=== PATIENT | male | born 1960 | race Caucasian/White ===

== ENCOUNTER → 2016-07-13 | Outpatient (CLI) | payer OTHER ==
[~2016-07-13] VITALS: Ht 170.2 cm; Wt 79.4 kg
[~2016-07-13] MED LIST: FLOM5CAP PO; LIDOCAINE 2% INJ 100 MG/5 ML SDV (FOR ANES.) As Ordered ONE; NAPR250T2 PO; PERCOCET PO; POTA595T8 PO; PROPOFOL 200 MG/20 ML VIAL As Ordered ONE; RANI15TA PO; TYLENOL #3 OR
--- NOTE | 2016-07-13 09:14 | ROOR ---
Patient Name: Antony Villafana Procedure Date: 07/13/2016 8:51 AM Date of : 1960 Age: 55 Room: [facility] [place] Gender: Male Note Status: Finalized Procedure: Colonoscopy Indications: Screening for colorectal malignant neoplasm Providers: Romeo Pope DO Referring MD: Roddy Marcus Do Requesting Provider: Medicines: Propofol per Anesthesia Complications: No immediate complications. Procedure: Pre-Anesthesia Assessment: - Prior to the procedure, a History and Physical was performed, and patient medications and allergies were reviewed. The patient is competent. The risks and benefits of the procedure and the sedation options and risks were discussed with the patient. All questions were answered and informed consent was obtained. Patient identification and proposed procedure were verified by the physician, the nurse, the anesthesiologist and the cryptological technician in the endoscopy suite. Mental Status Examination: alert and oriented. Airway Examination: normal oropharyngeal airway and neck mobility. Respiratory Examination: clear to auscultation. CV Examination: normal. Prophylactic Antibiotics: The patient does not require prophylactic antibiotics. Prior Anticoagulants: The patient has taken no previous anticoagulant or antiplatelet agents. ASA Grade Assessment: II - A patient with mild systemic disease. After reviewing the risks and benefits, the patient was deemed in satisfactory condition to undergo the procedure. The anesthesia plan was to use monitored anesthesia care (MAC). Immediately prior to administration of medications, the patient was re-assessed for adequacy to receive sedatives. The heart rate, respiratory rate, oxygen saturations, blood pressure, adequacy of pulmonary ventilation, and response to care were monitored throughout the procedure. The physical status of the patient was re-assessed after the procedure. The Colonoscope was introduced through the anus and advanced to the cecum, identified by the appendiceal orifice, ileocecal valve and palpation. The colonoscopy was performed without difficulty. The patient tolerated the procedure well. Findings: The entire examined colon appeared normal on direct and retroflexion views. Impression: - The entire examined colon is normal on direct and retroflexion views. - No specimens collected. Recommendation: - Patient has a contact number available for emergencies. The signs and symptoms of potential delayed complications were discussed with the patient. Return to normal activities tomorrow. Written discharge instructions were provided to the patient. - Repeat colonoscopy in 5-10 years for screening purposes. - Return to my office PRN. Romeo Pope DO 07/13/2016 9:14:05 AM This report has been signed electronically. Number of Addenda: 0 Note Initiated On: 07/13/2016 8:51 AM Estimated Blood Loss: Estimated blood loss: none.
[2016-07-13 09:40] VITALS: BP 123/85
== END ==
LOC: M OPP 08:16
PROVIDERS: ATTEND Surgery
DX: Z12.11 Encounter for screening for malignant neoplasm of colon (principal); Z87.891 Personal history of nicotine dependence; Z79.899 Other long term (current) drug therapy

== ENCOUNTER 2016-08-30 12:00 | Emergency (ER) | payer OTHER ==
[~2016-08-30] VITALS: Ht 170.2 cm; Wt 81.2 kg
[~2016-08-30 12:00] MED LIST changes: -LIDOCAINE 2% INJ 100 MG/5 ML SDV (FOR ANES.) As Ordered ONE; -PROPOFOL 200 MG/20 ML VIAL As Ordered ONE
[2016-08-30 12:02] VITALS: BP 136/89
[2016-08-30] MEDS ORDERED: CENTTAB47 PO (12:19)
[2016-08-30] MEDS ORDERED: PRAV80TA2 (12:19)
== END 2016-08-30 14:42 | disposition left against medical advice (07) ==
LOC: M ED 14:40
DX: R51 Headache (principal); R50.9 Fever, unspecified; J02.9 Acute pharyngitis, unspecified; K44.9 Diaphragmatic hernia without obstruction or gangrene; Z79.899 Other long term (current) drug therapy; Z53.29 Procedure and treatment not carried out because of patient's decision for other reasons

== ENCOUNTER → 2016-09-23 | Outpatient (CLI) | payer OTHER ==
[~2016-09-23] MED LIST changes: +CENTTAB47 PO; +PRAV80TA2
--- NOTE | 2016-09-23 16:44 | REP ---
Clinical: Left-sided pain with history of recent testicular trauma. Technique: Real time charles scale and color Doppler evaluation using linear high frequency transducer. Findings: Right testicle and epididymis are normal in contour, size, echogenicity, and vascularity without intratesticular mass lesion, infectious/inflammatory process, torsion, or injury. Right testicle measures 4.7 x 1.8 x 2.9 cm. No hydroceles are identified. No varicoceles noted. Left testicle demonstrates small 9 x 5 x 9 mm hypoechoic area which may be related to history of trauma as well as small adjacent cysts at the lower pole measuring combined 4.5 mm maximal diameter. The left testicle is otherwise normal in echogenicity and vascularity without evidence for torsion or infectious/inflammatory process and measures 3.7 x 2.1 x 2.5 cm. No hydroceles are identified. Left-sided varicoceles measure up to 3.7 mm maximal diameter. Impression: An 8 ml hypoechoic area within the left testicle is nonspecific and possibly related to recent trauma. Differential diagnosis would include mass lesion and follow-up examination may be warranted. Simple appearing cystic change to the lower pole left testicle or flow noted along with mild varicoceles up to 3.7 mm diameter. Signed by Khadar Hurley MD 09/23/2016 04:36 P
== END ==
LOC: M RAD 16:00
PROVIDERS: ATTEND Family Medicine
DX: N50.9 Disorder of male genital organs, unspecified (principal)

== ENCOUNTER → 2016-10-07 | Outpatient (CLI) | payer OTHER ==
--- NOTE | 2016-10-07 14:11 | REP ---
SCROTAL ULTRASOUND: Real-time sonographic evaluation of the scrotum and contents performed. Both testicles are normal in size, right testicle measuring 4.1 x 2.4 x 2.9 cm and the left testicle 3.6 x 1.9 x 2.9 cm. Once again, a cluster of cysts is seen in the mid left testicle, 7 x 4 x 5 mm unchanged since the prior exam of 09/23/2016. Heterogeneous hypoechoic area anteriorly in the left testicle appears to be diminishing in size. It measures approximately 5 x 4 x 5 mm, previously measuring about 9 x 5 x 9 mm. This probably represents resolving post traumatic change in the left testicle. A cyst in the head of the left epididymis measures 4 x 2 x 3 mm. There are small bilateral hydroceles. There is a small left varicocele again seen. IMPRESSION: Somewhat heterogeneous ill-defined hypoechoic area in the anterior left testicle is probably diminishing in size as discussed above. This probably represents resolving posttraumatic changes of the anterior aspect of the left testicle. However, continued followup is recommended. There is otherwise no change and no other acute finding is seen. Signed by Romeo Amato MD 10/07/2016 05:39 P
== END ==
LOC: M RAD 13:08
PROVIDERS: ATTEND Family Medicine
DX: N50.9 Disorder of male genital organs, unspecified (principal)

== ENCOUNTER → 2017-05-24 | Outpatient (CLI) | payer OTHER ==
[~2017-05-24] MED LIST changes: -NAPR250T2 PO; +NAPR250T4 PO
[2017-05-24 18:22] LABS: ANION GAP 3 MEQ/L (8-16); BLOOD UREA NITROGEN 21 MG/DL (7-18); CALCIUM LEVEL 8.4 MG/DL (8.5-10.1); CARBON DIOXIDE LEVEL 32 MEQ/L (21-32); CHLORIDE LEVEL 105 MEQ/L (98-107); CREATININE FOR GFR 1.07 MG/DL (0.70-1.30); GLOMERULAR FILTRATION RATE > 60.0 (>56); GLUCOSE, FASTING 90 MG/DL (70-105); POTASSIUM SERUM 4.2 MEQ/L (3.5-5.1); SODIUM LEVEL 140 MEQ/L (136-145)
== END ==
LOC: M LAB 17:41
PROVIDERS: ATTEND Family Medicine
DX: R25.2 Cramp and spasm (principal)

== ENCOUNTER → 2017-06-06 | Outpatient (CLI) | payer OTHER ==
--- NOTE | 2017-06-07 07:29 | REP ---
SCROTAL ULTRASOUND: CLINICAL: Left testicular pain. COMPARISON: 10/07/2016. TECHNIQUE: Amato scale and color Doppler evaluation using linear high frequency transducer. FINDINGS: The bilateral testicles are normal in contour, size, echogenicity and vascularity without evidence for torsion, intratesticular mass lesion or infectious/inflammatory process. Previously noted left testicular trauma has resolved. Incidental note is made of a left intratesticular cyst measuring 3.2 mm maximal diameter. Right epididymal head cyst is also identified measuring 2.3 mm diameter. Left sided varicoceles are identified measuring up to roughly 3 mm diameter on normal respiration and Valsalva. Small bilateral hydroceles (right greater than left), nonspecific. Right testicle measures 3.8 x 2.4 x 2.8 cm. The left testicle measures 3.7 x 1.8 x 2.5 cm. IMPRESSION: 1. Previously identified left testicular contusion has resolved. 2. Incidental left intratesticular simple cysts up to 3.2 mm and right epididymal head cyst measuring 2.3 mm. 3. Few left sided varicoceles measuring up to 3 mm maximal diameter. Signed by Khadar Hurley MD 06/09/2017 08:45 A
== END ==
LOC: M RAD 16:09
PROVIDERS: ATTEND Family Medicine
DX: N50.812 Left testicular pain (principal)

== ENCOUNTER → 2017-07-07 | Outpatient (CLI) | payer OTHER ==
[~2017-07-07] MED LIST changes: -CENTTAB47 PO; -FLOM5CAP PO; -NAPR250T4 PO; -PERCOCET PO; -POTA595T8 PO; -PRAV80TA2; +PROHANCE 279.3MG/ML 15ML VIAL (A9576) As Ordered; -RANI15TA PO; -TYLENOL #3 OR
== END ==
LOC: M RAD 16:18
DX: I67.9 Cerebrovascular disease, unspecified (principal); H93.11 Tinnitus, right ear
CPT/HCPCS: A9576

== ENCOUNTER → 2019-05-18 | Outpatient (CLI) | payer OTHER ==
[~2019-05-18] MED LIST changes: +CENTTAB47 PO; +FLOM0.4C39 PO; +NAPR250T4 PO; +PERCOCET PO; +POTA595T8 PO; +PRAV80TA2; -PROHANCE 279.3MG/ML 15ML VIAL (A9576) As Ordered; +RANI15TA PO; +TYLENOL #3 OR
== END ==
LOC: M LAB 09:35
PROVIDERS: ATTEND Family Medicine
DX: R39.198 Other difficulties with micturition (principal); Z12.5 Encounter for screening for malignant neoplasm of prostate
CPT/HCPCS: 36415; G0103

== ENCOUNTER → 2019-08-23 | Outpatient (REF) | payer OTHER ==
[2019-08-23 16:23] LABS: ALT/SGPT 53 U/L (12-78); BILIRUBIN,TOTAL 0.7 MG/DL (0.2-1.0); BLOOD UREA NITROGEN 22 MG/DL (7-18); CALCIUM LEVEL 8.5 MG/DL (8.5-10.1); CARBON DIOXIDE LEVEL 31 MEQ/L (21-32); CHLORIDE LEVEL 107 MEQ/L (98-107); CHOLESTEROL LEVEL 189 MG/DL (<200); CREATININE FOR GFR 0.95 MG/DL (0.70-1.30); GLOMERULAR FILTRATION RATE > 60.0 (>56); GLUCOSE, FASTING 101 MG/DL (70-100); POTASSIUM SERUM 4.2 MEQ/L (3.5-5.1); SODIUM LEVEL 140 MEQ/L (136-145); TRIGLYCERIDES LEVEL 168 MG/DL (<150)
[2019-08-23 16:24] LABS: ALBUMIN 3.8 GM/DL (3.2-5.2); CHOLESTEROL RISK RATIO 4.295 (<5); HDL CHOLESTEROL 44 MG/DL (>40); LDL CHOLESTEROL 111 MG/DL (<100); NON-HDL-C 145 MG/DL; TOTAL PROTEIN 6.8 GM/DL (6.4-8.2)
== END ==
LOC: M SFHCCLAY 10:53
PROVIDERS: ATTEND Family Medicine
DX: E78.5 Hyperlipidemia, unspecified (principal); Z13.1 Encounter for screening for diabetes mellitus

== ENCOUNTER → 2020-07-22 | Outpatient (REF) | payer OTHER ==
[2020-07-22 12:32] LABS: BLOOD UREA NITROGEN 18 MG/DL (7-18); CALCIUM LEVEL 9.4 MG/DL (8.5-10.1); CARBON DIOXIDE LEVEL 31 MEQ/L (21-32); CHLORIDE LEVEL 105 MEQ/L (98-107); CHOLESTEROL LEVEL 213 MG/DL (<200); CHOLESTEROL RISK RATIO 3.491 (<5); CREATININE FOR GFR 1.04 MG/DL (0.70-1.30); GLOMERULAR FILTRATION RATE > 60.0 (>56); GLUCOSE, FASTING 133 MG/DL (70-100); HDL CHOLESTEROL 61 MG/DL (>40); LDL CHOLESTEROL 118 MG/DL (<100); NON-HDL-C 152 MG/DL; POTASSIUM SERUM 4.5 MEQ/L (3.5-5.1); SODIUM LEVEL 141 MEQ/L (136-145); TRIGLYCERIDES LEVEL 171 MG/DL (<150)
[2020-07-22 13:03] LABS: HEMOGLOBIN A1c 5.8 %
== END ==
LOC: M SFHCCLAY 07:14
PROVIDERS: ATTEND Family Medicine
DX: R73.01 Impaired fasting glucose (principal); E78.5 Hyperlipidemia, unspecified

== ENCOUNTER → 2020-08-21 | Outpatient (REF) | payer OTHER ==
[2020-08-21 17:53] LABS: APPEARANCE, URINE CLEAR (CLEAR); BACTERIA, URINE AUTO NEGATIVE (NEGATIVE); BILIRUBIN, URINE AUTO NEGATIVE (NEGATIVE); BLOOD, URINE BLOOD NEGATIVE (NEGATIVE); COLOR, URINE YELLOW (YELLOW); GLUCOSE, URINE (UA) AUTO NEGATIVE (NEGATIVE); KETONE, URINE AUTO NEGATIVE (NEGATIVE); LEUKOCYTE ESTERASE, URINE AUTO NEGATIVE (NEGATIVE); NITRITE, URINE AUTO NEGATIVE (NEGATIVE); PROTEIN, URINE AUTO NEGATIVE (NEGATIVE); RBC, URINE AUTO 0 /HPF (0-3); SPECIFIC GRAVITY URINE AUTO 1.011 (1.002-1.035); SQUAMOUS EPITHELIAL CELL UR AU 0 /HPF (0-6); UROBILINOGEN, URINE AUTO 0.2 mg/dL (0.0-2.0); WBC, URINE AUTO 0 /HPF (0-3)
== END ==
LOC: M SMT 16:45
PROVIDERS: ATTEND Urology
DX: N40.1 Benign prostatic hyperplasia with lower urinary tract symptoms (principal)

== ENCOUNTER → 2020-08-22 | Outpatient (CLI) | payer OTHER ==
[2020-08-24 14:12] LABS: PSA TOTAL 1.1 ng/mL (0.0-4.0); TESTOSTERONE FREE (DIRECT) 8.2 pg/mL (7.2-24.0)
== END ==
LOC: M LAB 10:00
PROVIDERS: ATTEND Urology
DX: N40.1 Benign prostatic hyperplasia with lower urinary tract symptoms (principal)

== ENCOUNTER → 2020-09-25 | Outpatient (CLI) | payer OTHER ==
[~2020-09-25] MED LIST changes: +NAPR-849 PO; -NAPR250T4 PO
--- NOTE | 2020-09-25 18:21 | REP ---
INDICATION: BENIGN PROSTATIC HYPERPLASIA WITH LOWER URINARY TRACT SYMP. COMPARISON: None. TECHNIQUE: High-resolution bilateral scrotal sonography. FINDINGS: There is no evidence of intratesticular mass on either side. There are several small cysts in the mediastinum testis on the left the largest of which measures 4 mm in greatest diameter. No epididymal abnormality is seen. There is a small left-sided varicocele. No hydrocele is seen. No evidence for hernia. Testicular Doppler flow is preserved in both testes with resistive indices measured at 0.63 on the right and 0.56 on the left. Right testis measures 4.5 x 2.0 x 2.3 cm. Left testicular dimensions are 3.8 x 1.7 x 2.4 cm. No epididymal abnormality is seen. IMPRESSION: Normal Doppler flow. No evidence of intra testicular mass lesion on either side. Left-sided varicocele. <Electronically signed by Wu Lombardo > 09/25/20 [id number]
== END ==
LOC: M RAD 16:12
PROVIDERS: ATTEND Urology
DX: N40.1 Benign prostatic hyperplasia with lower urinary tract symptoms (principal)

== ENCOUNTER → 2021-03-02 | Outpatient (REF) | payer OTHER | LOC: M SFHCCLAY 11:43 | PROVIDERS: ATTEND Physician Assistant | DX: R50.9 Fever, unspecified (principal) ==

== ENCOUNTER 2021-03-04 11:58 | Emergency (ER) | payer OTHER ==
[~2021-03-04] VITALS: Ht 170.2 cm; Wt 83.2 kg
[2021-03-04] MEDS ORDERED: MAGN400C PO (12:25)
[2021-03-04] MEDS ORDERED: ACETAMINOPHEN 500 MG TAB PO ONE (14:55)
[2021-03-04 15:43] LABS: VENOUS BASE EXCESS 2.9 (-2.0-2.0); VENOUS HCO3 28.7 MEQ/L (23.0-27.0); VENOUS O2 SATURATION 55.5 % (60.0-80.0); VENOUS PARTIAL PRESSURE CO2 48.2 mmHg (38.0-50.0); VENOUS PARTIAL PRESSURE O2 28.5 mmHg (30.0-50.0); VENOUS PH 7.392 UNITS (7.330-7.430); VENOUS TOTAL CO2 30.1 MEQ/L (24.0-28.0)
[2021-03-04 15:55] LABS: BASO % 0.4 % (0.0-1.0); HEMATOCRIT 42.2 % (42.0-52.0); HEMOGLOBIN 13.7 g/dl (13.5-17.5); LYMPH # 0.6 10^3/uL (1.5-5.0); LYMPH % 11.2 % (24.0-44.0); MEAN CORPUSCULAR HEMOGLOBIN 27.5 pg (27.0-33.0); MEAN CORPUSCULAR HGB CONC 32.5 g/dl (32.0-36.5); MEAN CORPUSCULAR VOLUME 84.7 fl (80.0-96.0); MONO # 0.6 10^3/uL (0.0-0.8); MONO % 10.3 % (2.0-8.0); NEUTROPHILS # 4.4 10^3/uL (1.5-8.5); NEUTROPHILS % 77.7 % (36.0-66.0); PLATELET COUNT, AUTOMATED 250 10^3/uL (150-450); RED BLOOD COUNT 4.98 10^6/uL (4.30-6.10); WHITE BLOOD COUNT 5.7 10^3/uL (4.0-10.0)
[2021-03-04 16:06] LABS: INR 1.07; PROTHROMBIN TIME 14.3 SECONDS (12.7-14.5)
[2021-03-04 16:07] LABS: PARTIAL THROMBOPLASTIN TIME 36.2 SECONDS (25.9-37.0)
[2021-03-04 16:10] LABS: MONO REFLEX EBV COMP NEGATIVE (NEGATIVE)
--- NOTE | 2021-03-04 16:19 | REP ---
INDICATION: SEPSIS/SHOCK. COMPARISON: None. TECHNIQUE: Single portable AP view of the chest was performed. FINDINGS: There is no acute infiltrate or pulmonary edema. Lungs are clear. The heart is not significantly enlarged. The mediastinal silhouette is unremarkable. The visualized osseous structures are intact. IMPRESSION: No acute pulmonary disease. <Electronically signed by Romeo Amato > 03/04/21 [id number]
--- NOTE | 2021-03-04 16:32 | REPVR ---
PROCEDURE INFORMATION: Exam: CT Head Without Contrast Exam date and time: 03/04/2021 4:11 PM Age: 60 years old Clinical indication: Pain; Fever; Headache; Additional info: Fever, headache TECHNIQUE: Imaging protocol: Computed tomography of the head without contrast. Radiation optimization: All CT scans at this facility use at least one of these dose optimization techniques: automated exposure control; mA and/or kV adjustment per patient size (includes targeted exams where dose is matched to clinical indication); or iterative reconstruction. COMPARISON: MRI-Brain W/O FOLL BY WITH 07/07/2017 4:36 PM FINDINGS: Brain: Normal. No hemorrhage. Unremarkable white matter. No mass effect. Cerebral ventricles: No ventriculomegaly. Paranasal sinuses: Visualized sinuses are unremarkable. No fluid levels. Mastoid air cells: Visualized mastoid air cells are well aerated. Bones/joints: Unremarkable. No acute fracture. Soft tissues: Unremarkable. IMPRESSION: No CT evidence for acute intracranial abnormality. Electronically signed by: Taye Meredith On 03/04/2021 16:31:40 PM
[2021-03-04] MEDS ORDERED: NS 1,000 ML IV ONE (17:10)
[2021-03-04] MEDS ORDERED: METOCLOPRAMIDE INJ 10MG/2ML VIAL (J2765 PER 1) IV ONE (17:10)
[2021-03-04] MEDS ORDERED: KETOROLAC 30 MG/ML 1ML VIAL IV ONE (17:10)
--- NOTE | 2021-03-04 19:57 | REPVR ---
PROCEDURE INFORMATION: Exam: MR Lumbar Spine Without Contrast Exam date and time: 03/04/2021 7:27 PM Age: 60 years old Clinical indication: Low back pain; Additional info: Fever uko, low back pain TECHNIQUE: Imaging protocol: Multiplanar magnetic resonance images of the lumbar spine without intravenous contrast. COMPARISON: Scrotal, US 2020-09-25 16:42 FINDINGS: Vertebrae: Normal lumbar lordosis and vertebral body heights. L5 bilateral spondylolysis with grade 1 L5-S1 anterolisthesis. Small L2 vertebral hemangioma. Spinal cord: Normal signal. No cord compression. Multilevel findings: Diffuse degenerative disc desiccation, disc height loss, and associated degenerative endplate marrow signal changes most severe at L2-L5. L1-L2: Mild disc bulging asymmetric to the left with a small left far posterolateral disc protrusion and annulus fissure causes minimal spinal and mild left foraminal stenosis. Correlate for left L1 radiculopathy. L2-L3: Diffuse disc bulge with mild facet arthropathy and a small central posterior annulus fissure causes mild foraminal and spinal stenosis. L3-L4: Disc bulge, osteophyte, and moderate facet arthropathy causes moderate foraminal, moderate to severe subarticular, and mild spinal stenosis. L4-L5: Moderate facet arthropathy with a diffuse annular disc bulge and left foraminal disc protrusion with annulus fissure contacting the left exited L4 nerve, correlate for left L4 radiculopathy. Moderate severe left and mild right foraminal stenosis. Mild spinal stenosis. Mild L5-S1: Facet arthropathy with a left subarticular annulus fissure. Minimal anterolisthesis as result of bilateral L5 spondylolysis. Mild foraminal and subarticular stenosis. Soft tissues: Unremarkable. IMPRESSION: 1. No noncontrast MRI findings to suggest spinal infection. 2. Multilevel moderate degenerative disc and joint disease with disc bulges and protrusions detailed above. Electronically signed by: Cesar Matta On 03/04/2021 19:57:16 PM
[2021-03-04 20:25] LABS: ALBUMIN 3.1 GM/DL (3.2-5.2); ALT/SGPT 143 U/L (12-78); BILIRUBIN,DIRECT 0.3 MG/DL (0.0-0.2); BLOOD UREA NITROGEN 15 MG/DL (7-18); CALCIUM LEVEL 8.6 MG/DL (8.8-10.2); CARBON DIOXIDE LEVEL 31 MEQ/L (21-32); CHLORIDE LEVEL 101 MEQ/L (98-107); CK-MB VALUE MASS < 1.0 NG/ML (<3.6); CPK CREATINE PHOSPHOKINASE 60 U/L (39-308); CREATININE FOR GFR 1.02 MG/DL (0.70-1.30); GLOMERULAR FILTRATION RATE > 60.0 (>49); GLUCOSE, FASTING 93 MG/DL (70-100); LIPASE 107 U/L (73-393); MB/CK RELATIVE INDEX 1.67 (< OR =4); NT-PRO BNP 153 PG/ML (<125); POTASSIUM SERUM 3.9 MEQ/L (3.5-5.1); SODIUM LEVEL 136 MEQ/L (136-145); TOTAL PROTEIN 6.8 GM/DL (6.4-8.2); TROPONIN I < 0.02 NG/ML (< 0.10)
[2021-03-04] MEDS ORDERED: REGL10TA6 PO (20:38)
[2021-03-04 21:37] VITALS: BP 116/60
[2021-03-04 22:03] LABS: HEPATITIS A ANTIBODY IGM NEGATIVE (NEGATIVE); HEPATITIS B CORE ANTIBODY IGM NEGATIVE (NEGATIVE); HEPATITIS B SURFACE ANTIGEN NEGATIVE (NEGATIVE); HEPATITIS C VIRUS ABY INDEX < 0.0 INDEX (<0.8)
--- NOTE | 2021-03-05 11:37 | ECGEPIP ---
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
[2021-03-06 17:10] LABS: EBV AB TO NUCLEAR ANTIGEN 88.2 U/mL (0.0-17.9); EBV VIRAL CAPSID AG IgG 44.7 U/mL (0.0-17.9); EBV VIRAL CAPSID AG IgM <36.0 U/mL (0.0-35.9)
[2021-03-06 17:10] LABS: Lyme Disease IgG/IgM Antibodie <0.91 ISR (0.00-0.90); Lyme Disease IgM Ab Quantitati <0.80 index (0.00-0.79)
== END 2021-03-04 22:05 | disposition home or self-care (01) ==
LOC: M ED 11:58
DX: R00.0 Tachycardia, unspecified (principal); R50.9 Fever, unspecified; R74.01 Elevation of levels of liver transaminase levels; R05 Cough; G45.9 Transient cerebral ischemic attack, unspecified; M79.10 Myalgia, unspecified site; K44.9 Diaphragmatic hernia without obstruction or gangrene; E78.5 Hyperlipidemia, unspecified; Z87.442 Personal history of urinary calculi; Z87.891 Personal history of nicotine dependence; M51.36 Other intervertebral disc degeneration, lumbar region; M51.26 Other intervertebral disc displacement, lumbar region; Z79.899 Other long term (current) drug therapy
CPT/HCPCS: 36415; 70450; 71045; 72148; 80048; 80076; 81001; 82550; 82553; 82803; 83605; 83690; 83880; 84484; 85025; 85610; 85652; 85730; 86140; 86308; 86617; 86664; 86665; 86705; 86709; 86803; 87040; 87077; 87340; 87798; 87804; 93005; 96361; 96374; 96375; 99284; J1885; J2765

== ENCOUNTER → 2021-03-22 | Outpatient (CLI) | payer OTHER ==
[~2021-03-22] MED LIST changes: +MAGN400C PO; +REGL10TA6 PO
[2021-03-22 11:44] LABS: BASO # 0.1 10^3/uL (0.0-0.2); BASO % 1.7 % (0.0-1.0); EOS # 0.1 10^3/uL (0.0-0.5); EOS % 2.1 % (0.0-3.0); MEAN CORPUSCULAR HGB CONC 31.7 g/dl (32.0-36.5); MEAN CORPUSCULAR VOLUME 85.1 fl (80.0-96.0); MONO # 0.7 10^3/uL (0.0-0.8); MONO % 10.6 % (2.0-8.0); NEUTROPHILS # 3.4 10^3/uL (1.5-8.5); NEUTROPHILS % 53.2 % (36.0-66.0); PLATELET COUNT, AUTOMATED 478 10^3/uL (150-450); RED BLOOD COUNT 4.82 10^6/uL (4.30-6.10); WHITE BLOOD COUNT 6.3 10^3/uL (4.0-10.0)
[2021-03-22 12:21] LABS: ERYTHROCYTE SEDIMENTATION RATE 13 mm/hr (0-20)
[2021-03-22 12:42] LABS: ALBUMIN 3.2 GM/DL (3.2-5.2); ALT/SGPT 74 U/L (12-78); BILIRUBIN,TOTAL 0.3 MG/DL (0.2-1.0); BLOOD UREA NITROGEN 19 MG/DL (7-18); CALCIUM LEVEL 9.2 MG/DL (8.8-10.2); CARBON DIOXIDE LEVEL 32 MEQ/L (21-32); CHLORIDE LEVEL 102 MEQ/L (98-107); CREATININE FOR GFR 0.76 MG/DL (0.70-1.30); GLOMERULAR FILTRATION RATE > 60.0 (>49); GLUCOSE, FASTING 108 MG/DL (70-100); POTASSIUM SERUM 5.1 MEQ/L (3.5-5.1); SODIUM LEVEL 137 MEQ/L (136-145); TOTAL PROTEIN 6.9 GM/DL (6.4-8.2)
[2021-03-24 00:08] LABS: Lyme Disease IgG Ab 18 kDa Ban Absent (.); Lyme Disease IgG Ab 23 kDa Ban Absent (.); Lyme Disease IgG Ab 28 kDa Ban Absent (.); Lyme Disease IgG Ab 30 kDa Ban Absent (.); Lyme Disease IgG Ab 39 kDa Ban Absent (.); Lyme Disease IgG Ab 41 kDa Ban Present (.); Lyme Disease IgG Ab 45 kDa Ban Absent (.); Lyme Disease IgG Ab 58 kDa Ban Present (.); Lyme Disease IgG Ab 66 kDa Ban Absent (.); Lyme Disease IgG Ab 93 kDa Ban Present (.); Lyme Disease IgG West Blot Int Negative (.); Lyme Disease IgG/IgM Antibodie 1.16 ISR (0.00-0.90); Lyme Disease IgM Ab 23 kDa Ban Present (.); Lyme Disease IgM Ab 39 kDa Ban Present (.); Lyme Disease IgM Ab 41 kDa Ban Present (.); Lyme Disease IgM Ab Quantitati 8.65 index (0.00-0.79); Lyme Disease IgM West Blot Int Positive (.)
== END ==
LOC: M PLALAB 08:35
PROVIDERS: ATTEND Internal Medicine Infectious Disease
DX: A69.20 Lyme disease, unspecified (principal); R94.6 Abnormal results of thyroid function studies

== ENCOUNTER → 2021-08-23 | Outpatient (REF) | payer OTHER ==
[2021-08-23 12:06] LABS: BLOOD UREA NITROGEN 22 MG/DL (7-18); CALCIUM LEVEL 8.6 MG/DL (8.8-10.2); CARBON DIOXIDE LEVEL 29 MEQ/L (21-32); CHLORIDE LEVEL 105 MEQ/L (98-107); CHOLESTEROL LEVEL 205 MG/DL (<200); CHOLESTEROL RISK RATIO 4.361 (<5); CREATININE FOR GFR 0.97 MG/DL (0.70-1.30); GLOMERULAR FILTRATION RATE > 60.0 (>49); GLUCOSE, FASTING 125 MG/DL (70-100); HDL CHOLESTEROL 47 MG/DL (>40); LDL CHOLESTEROL 129 MG/DL (<100); NON-HDL-C 158 MG/DL; POTASSIUM SERUM 4.6 MEQ/L (3.5-5.1); SODIUM LEVEL 140 MEQ/L (136-145); TRIGLYCERIDES LEVEL 143 MG/DL (<150)
[2021-08-23 12:07] LABS: HEMOGLOBIN A1c 5.9 %
== END ==
LOC: M SFHCCLAY 07:08
PROVIDERS: ATTEND Family Medicine
DX: Z00.00 Encounter for general adult medical examination without abnormal findings (principal); E78.5 Hyperlipidemia, unspecified; R73.03 Prediabetes; Z83.3 Family history of diabetes mellitus

== ENCOUNTER → 2022-09-15 | Outpatient (REF) | payer OTHER ==
[2022-09-15 19:56] LABS: HEMOGLOBIN A1c 5.8 % (4.0-6.0)
[2022-09-15 20:06] LABS: ALKALINE PHOSPHATASE 99 U/L (46-116); ALT/SGPT 33 U/L (7.0-40); AST/SGOT 19 U/L (<34); BILIRUBIN,TOTAL 0.9 MG/DL (0.3-1.2); BLOOD UREA NITROGEN 22 MG/DL (9-23); CALCIUM LEVEL 8.9 MG/DL (8.3-10.6); CARBON DIOXIDE LEVEL 29 MMOL/L (20-31); CHLORIDE LEVEL 105 MMOL/L (98-107); CHOLESTEROL LEVEL 180 MG/DL (<200); CHOLESTEROL RISK RATIO 3.72 (<5); CREATININE FOR GFR 0.79 MG/DL (0.70-1.30); GLOMERULAR FILTRATION RATE > 60.0 (>49); GLUCOSE, FASTING 108 MG/DL (74-106); HDL CHOLESTEROL 48.3 MG/DL (>40); LDL CHOLESTEROL 99.3 MG/DL (<100); NON-HDL-C 131.7 MG/DL; POTASSIUM SERUM 4.9 MMOL/L (3.5-5.1); SODIUM LEVEL 138 MMOL/L (136-145); TOTAL PROTEIN 6.7 G/DL (5.7-8.2); TRIGLYCERIDES LEVEL 162 MG/DL (<150)
== END ==
LOC: M SFHCCLAY 09:41
PROVIDERS: ATTEND Nurse Practitioner Family
DX: E78.5 Hyperlipidemia, unspecified (principal); R73.03 Prediabetes; N40.1 Benign prostatic hyperplasia with lower urinary tract symptoms
CPT/HCPCS: 80053; 80061; 83036; G0103

== ENCOUNTER → 2022-09-15 | Outpatient (CLI) | payer OTHER | LOC: M CLY 10:01 | PROVIDERS: ATTEND Nurse Practitioner Family | DX: M25.522 Pain in left elbow (principal) ==

== ENCOUNTER → 2022-11-14 | Outpatient (REF) | payer OTHER | LOC: M SFHCCLAY 15:42 | PROVIDERS: ATTEND Physician Assistant | DX: J02.9 Acute pharyngitis, unspecified (principal) ==

== ENCOUNTER → 2022-12-12 | Outpatient (REF) | payer OTHER | LOC: M SFHCCLAY 14:25 | PROVIDERS: ATTEND Urology | DX: R97.20 Elevated prostate specific antigen [PSA] (principal) ==

== ENCOUNTER → 2023-01-07 | Outpatient (CLI) | payer OTHER | LOC: M RAD 11:09 | PROVIDERS: ATTEND Orthopaedic Surgery | DX: M54.12 Radiculopathy, cervical region (principal) ==

== ENCOUNTER → 2023-07-28 | Outpatient (REF) | payer OTHER ==
[2023-07-28 18:12] LABS: APPEARANCE, URINE CLEAR (CLEAR); BACTERIA, URINE AUTO NEGATIVE (NEGATIVE); BILIRUBIN, URINE AUTO NEGATIVE (NEGATIVE); BLOOD, URINE BLOOD NEGATIVE (NEGATIVE); COLOR, URINE COLORLESS (YELLOW); GLUCOSE, URINE (UA) AUTO NEGATIVE (NEGATIVE); KETONE, URINE AUTO NEGATIVE (NEGATIVE); LEUKOCYTE ESTERASE, URINE AUTO NEGATIVE (NEGATIVE); NITRITE, URINE AUTO NEGATIVE (NEGATIVE); PROTEIN, URINE AUTO NEGATIVE (NEGATIVE); RBC, URINE AUTO 0 /HPF (0-3); SPECIFIC GRAVITY URINE AUTO 1.003 (1.002-1.035); SQUAMOUS EPITHELIAL CELL UR AU 0 /HPF (0-6); UROBILINOGEN, URINE AUTO 0.2 mg/dL (0.0-2.0); WBC, URINE AUTO 0 /HPF (0-3)
== END ==
LOC: M SMT 16:50
PROVIDERS: ATTEND Urology
DX: R39.9 Unspecified symptoms and signs involving the genitourinary system (principal)

== ENCOUNTER → 2023-10-24 | Outpatient (REF) | payer OTHER ==
[2023-10-24 11:51] LABS: ALBUMIN 3.8 G/DL (3.2-5.2); ALKALINE PHOSPHATASE 104 U/L (46-116); ALT/SGPT 31 U/L (7.0-40); AST/SGOT 21 U/L (<34); BILIRUBIN,TOTAL 0.6 MG/DL (0.3-1.2); BLOOD UREA NITROGEN 22 MG/DL (9-23); CALCIUM LEVEL 8.9 MG/DL (8.3-10.6); CARBON DIOXIDE LEVEL 30 MMOL/L (20-31); CHLORIDE LEVEL 102 MMOL/L (98-107); CHOLESTEROL LEVEL 186 MG/DL (<200); CHOLESTEROL RISK RATIO 4.66 (<5); CREATININE FOR GFR 0.89 MG/DL (0.70-1.30); GLOMERULAR FILTRATION RATE > 60.0 (>49); GLUCOSE, FASTING 126 MG/DL (74-106); HDL CHOLESTEROL 39.9 MG/DL (>40); LDL CHOLESTEROL 103.5 MG/DL (<100); NON-HDL-C 146.1 MG/DL; POTASSIUM SERUM 4.5 MMOL/L (3.5-5.1); PSA SCREENING 1.06 NG/ML (< 4.00); SODIUM LEVEL 138 MMOL/L (136-145); TOTAL PROTEIN 6.3 G/DL (5.7-8.2); TRIGLYCERIDES LEVEL 213 MG/DL (<150)
[2023-10-24 12:56] LABS: HEMOGLOBIN A1c 5.8 % (4.0-6.0)
== END ==
LOC: M SFHCCLAY 07:20
PROVIDERS: ATTEND Nurse Practitioner Family
DX: E78.5 Hyperlipidemia, unspecified (principal); R73.03 Prediabetes; N52.9 Male erectile dysfunction, unspecified; N40.1 Benign prostatic hyperplasia with lower urinary tract symptoms; D17.1 Benign lipomatous neoplasm of skin and subcutaneous tissue of trunk; A69.20 Lyme disease, unspecified; R39.9 Unspecified symptoms and signs involving the genitourinary system

== ENCOUNTER → 2023-10-24 | Outpatient (CLI) | payer OTHER | LOC: M CLY 07:24 | PROVIDERS: ATTEND Nurse Practitioner Family | DX: M25.511 Pain in right shoulder (principal) ==

== ENCOUNTER → 2024-04-19 | Outpatient (REF) | payer OTHER ==
[2024-04-19 18:36] LABS: ALBUMIN 4.1 G/DL (3.2-5.2); ALKALINE PHOSPHATASE 103 U/L (46-116); ALT/SGPT 28 U/L (7.0-40); AST/SGOT 17 U/L (<34); BILIRUBIN,TOTAL 1.2 MG/DL (0.3-1.2); BLOOD UREA NITROGEN 21 MG/DL (9-23); CALCIUM LEVEL 9.5 MG/DL (8.3-10.6); CARBON DIOXIDE LEVEL 28 MMOL/L (20-31); CHLORIDE LEVEL 104 MMOL/L (98-107); CHOLESTEROL LEVEL 167 MG/DL (<200); GLOMERULAR FILTRATION RATE > 60.0 (>49); GLUCOSE, FASTING 84 MG/DL (74-106); HDL CHOLESTEROL 42.8 MG/DL (>40); LDL CHOLESTEROL 96.6 MG/DL (<100); NON-HDL-C 124.2 MG/DL; POTASSIUM SERUM 4.1 MMOL/L (3.5-5.1); SODIUM LEVEL 138 MMOL/L (136-145); TOTAL PROTEIN 6.7 G/DL (5.7-8.2); TRIGLYCERIDES LEVEL 138 MG/DL (<150)
[2024-04-19 18:45] LABS: HEMOGLOBIN A1c 5.9 % (4.0-6.0)
== END ==
LOC: M SFHCCLAY 14:48
PROVIDERS: ATTEND Nurse Practitioner Family
DX: E78.5 Hyperlipidemia, unspecified (principal); R73.03 Prediabetes; N52.9 Male erectile dysfunction, unspecified; N40.1 Benign prostatic hyperplasia with lower urinary tract symptoms; A69.20 Lyme disease, unspecified

== ENCOUNTER 2024-08-14 08:44 | Day surgery (SDC) | payer OTHER ==
[~2024-08-14] VITALS: Ht 172.7 cm; Wt 83.5 kg
[~2024-08-14 08:44] MED LIST changes: +IBUP1TAB7 PO; +MIRA50TA2 PO; +ROSU10TA61 PO; +THERTAB52 PO; +super beets PO
[2024-08-14] MEDS ORDERED: propofoL 200 MG/20 ML VIAL As Ordered ONE (09:32)
[2024-08-14] MEDS ORDERED: LIDOCAINE 2% 100MG/5ML SDV (FOR ANES.) As Ordered ONE (09:32)
[2024-08-14 10:30] VITALS: TEMP 97.7
[2024-08-14 10:49] VITALS: BP 124/79; O2SAT 97
== END 2024-08-14 10:54 | disposition home or self-care (01) ==
LOC: M OPP 08:44
PROVIDERS: ATTEND Surgery
DX: Z12.11 Encounter for screening for malignant neoplasm of colon (principal); K64.0 First degree hemorrhoids; Z79.899 Other long term (current) drug therapy

== ENCOUNTER → 2024-09-06 | Outpatient (REF) | payer OTHER | LOC: M SFHCCLAY 09:17 | PROVIDERS: ATTEND Urology | DX: Z12.5 Encounter for screening for malignant neoplasm of prostate (principal) ==

== ENCOUNTER → 2024-09-06 | Outpatient (CLI) | payer OTHER | LOC: M CLY 13:11 | PROVIDERS: ATTEND Urology | DX: N40.0 Benign prostatic hyperplasia without lower urinary tract symptoms (principal) ==